=== PATIENT | female | born 1995 | race Caucasian/White ===

== ENCOUNTER 2017-08-17 12:35 | Inpatient (IN) ==
[2017-08-17 13:20] LABS: Basophils % 0.3 %; Eosinophils # 0.2 K/mcL (0.0-0.6); Eosinophils % 1.2 %; Hematocrit 31.7 % (35.3-44.9); Hemoglobin 10.9 g/dL (11.5-15.4); Immature Granulocytes % 0.5 % (0-4); Lymphocytes # 1.4 K/mcL (0.6-4.6); Lymphocytes % 8.9 %; Mean Corpuscular HGB Conc 34.4 g/dL (31.6-35.5); Mean Corpuscular Hemoglobin 30.9 pg (28.0-33.3); Mean Corpuscular Volume 89.8 fL (83.0-100.0); Mean Platelet Volume 10.7 fL (9.4-12.4); Monocytes # 1.1 K/mcL (0.0-1.3); Monocytes % 7.1 %; Neutrophils # 12.4 K/mcL (1.6-8.9); Platelet Count 374 K/mcL (140-400); Red Blood Count 3.53 M/mcL (3.82-4.97); Red Cell Distribution Width 13.8 % (11.5-14.5)
[2017-08-17 13:29] LABS: Amphetamine Screen,Urine Negative ng/mL (Cutoff=1000); Barbiturate Screen,Urine Negative ng/mL (Cutoff=200); Benzodiazepines Screen,Urine Negative ng/mL (Cutoff=200); Cannabinoid Screen,Urine Negative ng/mL (Cutoff = 50); Cocaine Screen,Urine Negative ng/mL (Cutoff= 300); Opiate Screen,Urine Negative ng/mL (Cutoff=300); Phencyclidine Screen,Urine Negative ng/mL (Cutoff=25)
[2017-08-17 13:51] LABS: Alanine Aminotransferase 8 Units/L (7-52); Aspartate Amino Transferase 12 Units/L (13-39); BUN/Creatinine Ratio 22 (6-26); Blood Urea Nitrogen 9 mg/dL (6-20); Lactate Dehydrogenase 144 Units/L (140-271); Uric Acid 4.6 mg/dL (2.3-7.6); eGFR For African Americans > 60 (> 60); eGFR For Non-African Americans > 60 (> 60)
[2017-08-17 14:30] LABS: Protein/Creatinine Ratio,Urine 0.45 mg/mg (0.00-0.20)
--- NOTE | 2017-08-17 15:58 | OB/GYN History & Physical ---
Date of Encounter: 08/17/17 Time of Encounter: 15:56 Assessment and Plan (1) 40 weeks gestation of Current visit: Yes Status: Acute admitted for labor (2) NST (non-stress test) reactive on surveillance Current visit: Yes Status: Acute baseline 135 bpm moderate variability +15x15 accels no decels noted. History of Present Illness Chief complaint: Labor HPI: Ms. Rivera is a 22 year old female at 40w0d presents to labor and delivery with complaints of contractions that are stronger. Patient reports she went to [place] yesterday and was 3 cm and was sent home. Patient sees Dr. Olivera for care. Patient denies LOF or VB. Patient reports +FM. On admission for observation some elevated BPs were noted. PIH labs collected and WNL. Patient denied PLATA, visual disturbances or epigastric pain. Blood type: A+ Rubella: Immune Hep B: Nonreactive GBS: Negative Past Med Surg Social Fam HX - Past Medical History Source: patient Medical history: no medical history Psychiatric history: anxiety - Past Surgical History Surgical History: other (tonsilectomy) - Social History Smoking Status: Current every day smoker Smokeless Tobacco Status: No Alcohol use: none Drug use: marijuana Current living situation: Home - Independent Activity Level: Independent ambulation Recent Out of Country Travel Within the Last 8 Weeks: No Exposure or Possible Exposure to Illness During Travel: No Obstetrical History - Pregnancies : 1 Para: 0 Term: 0 : 0 Ab's: 0 Livin Medications and Allergies Acetaminophen [Tylenol] 500 mg PO Q6HR PRN #20 tablet 03/22/17 [Rx] Benadryl 03/22/17 [History] Cephalexin [Keflex] 500 mg PO TID #21 capsule 03/22/17 [Rx] DiphenhydraMINE [Benadryl] 25 mg PO Q6HR PRN #20 capsule 03/22/17 [Rx] Humidifier [Cool Mist Humidifier] 1 each MC BID #1 each 03/22/17 [Rx] Tylenol 03/22/17 [History] 3 Allergy/AdvReac Type Severity Reaction Status Date / Time No Known Allergies Allergy Verified 03/22/17 12:58 Review of System OB - Constitutional Constitutional ROS IM: no chills, no fever(s), no headache(s) - Cardiovascular Cardiovascular: no chest pain, no lightheadedness, no palpitations, no pedal edema, no rapid heart rate, no syncope - Respiratory Respiratory: no cough - Gastrointestinal Gastrointestinal: cramping, no constipation, no diarrhea, no heartburn, no nausea, no vomiting - Genitourinary Genitourinary: no abnormal vaginal bleeding, no dysuria, no flank pain, no urinary frequency, no urinary urgency Exam - Vital Signs Vital signs: Initial Vital Signs Temp Pulse Resp BP 97.9 F 80 18 146/101 08/17/17 12:59 08/17/17 12:59 08/17/17 12:59 08/17/17 12:59 - Constitutional Constitutional: well developed, well nourished, no acute distress, average body habitus - HEENT HEENT: Normocephaly, Mucus Membranes Moist - Neck Neck exam: full ROM, supple - Lungs Respiratory exam: CTAB - Cardiovascular Cardiovascular exam: RRR, +S1, +S2 - Abdomen Abdomen: Present: bowel sounds normal, gravid, non tender - Extremities Extremities exam: full ROM, normal inspection Deep Tendon Reflex Grade: 2+ Normal - Cervix Dilation: 5 Effacement: 100 Station: -1 - Uterus Uterus exam: Present: normal size, normal contour - Anus/Rectum Anus/Rectum: Present: normal perianal skin - Comments Comments: FHR 135 bpm moderate variability +15x15 accels no decels noted. Contractions 2- 3 min apart Results Result Diagrams: 08/17/17 13:10 08/17/17 13:10 Abnormal lab results WBC 15.1 K/mcL (4.3-11.1) H 08/17/17 13:10 RBC 3.53 M/mcL (3.82-4.97) L 08/17/17 13:10 Hgb 10.9 g/dL (11.5-15.4) L 08/17/17 13:10 Hct 31.7 % (35.3-44.9) L 08/17/17 13:10 Neutrophils # 12.4 K/mcL (1.6-8.9) H 08/17/17 13:10 Creatinine 0.41 mg/dL (0.60-1.20) L 08/17/17 13:10 AST 12 Units/L (13-39) L 08/17/17 13:10 Protein/Creatinin Ratio 0.45 mg/mg (0.00-0.20) H 08/17/17 13:10 All other labs normal. - VTE Reasons for not Prescribing Prophylaxis: Treatment not Indicated - Low risk for VTE
[2017-08-17] MEDS ORDERED: Ringers Solution, Lactated 1,000 ML ONE (16:00)
[2017-08-17] MEDS ORDERED: Ondansetron 4 MG/2 ML VIAL IVP PRN (16:02)
[2017-08-17] MEDS ORDERED: Naloxone 0.4 MG/ML INJ IVP PRN (16:02)
[2017-08-17] MEDS ORDERED: Famotidine 20 MG/2 ML VIAL IVP PRN (16:02)
[2017-08-17] MEDS ORDERED: *HR* Nalbuphine 20 MG/ML AMPUL IVP PRN (16:02)
[2017-08-17] MEDS ORDERED: Ringers Solution, Lactated 1,000 ML IVC SCH (16:15)
--- NOTE | 2017-08-17 16:41 | Anesthesia Evaluation PreOp ---
Date of Encounter: 08/17/17 Time of Encounter: 16:39 - Past History Planned Operation: edmund Cardiac History: Denies any Significant Hx Pulmonary History: Smoker (6/ day), Pack/yr (5) SINGER AND UNLOADER History: Denies Any Significant HX Other Medical History: GERD Anesthesia History: No Prior Anesthetic Complications, Past Anesthesia (tonsil) : Yes Test: Positive Alcohol Use: none Drug use: marijuana Medications and Allergies Acetaminophen [Tylenol] 500 mg PO Q6HR PRN #20 tablet 03/22/17 [Rx] Benadryl 03/22/17 [History] Cephalexin [Keflex] 500 mg PO TID #21 capsule 03/22/17 [Rx] DiphenhydraMINE [Benadryl] 25 mg PO Q6HR PRN #20 capsule 03/22/17 [Rx] Humidifier [Cool Mist Humidifier] 1 each MC BID #1 each 03/22/17 [Rx] Tylenol 03/22/17 [History] 3 Allergy/AdvReac Type Severity Reaction Status Date / Time No Known Allergies Allergy Verified 03/22/17 12:58 - Meds/Allergy Pre-op Review Medications Reviewed: Yes Allergies Reviewed: Yes Beta Blockers on Current Med List: No Anesthesia Results - Labs 08/17/17 13:10 08/17/17 13:10 Anesthesia Exam Vital Signs/O2 Sat, Most Current Temp Pulse Resp BP 97.9 F 80 18 146/101 08/17/17 12:59 08/17/17 12:59 08/17/17 12:59 08/17/17 12:59 Height: 5'2" Weight: 130 NPO (# of Hours): 8 Pain Scale: 6 Pain Scale Used: Numeric (1 - 10) - HEENT Pupil (Motor): Pupils equal Mallampati: II Teeth: Normal Oral Opening: Greater than 3 - SINGER AND UNLOADER SINGER AND UNLOADER Motor: Normal RUE, Normal LUE, Normal RLE, Normal LLE, Normal Face SINGER AND UNLOADER Sensory: Normal: RUE, LUE, RLE, LLE, Face - Cardiac Rhythm: Regular Murmur: None - Pulmonary Breath Sounds: bilateral Clear Respiratory Effort: Symmetrical Anesthesia Assess/Plan ASA Score: 2 Modified Troy Scale for Level of Consciousness: Cooperative, oriented, and tranquil Anesthetic Plan: Regional Autologous Blood: No Monitoring Plan: Standard Monitors Recovery Plan: Other (risks discussed, questions answered, consented)
[2017-08-17] MEDS ORDERED: *HR* Ropivacaine/PF 0.2% 10 ML AMPUL EP ONE (16:42)
[2017-08-17] MEDS ORDERED: *HR* FentaNYL (PF) 100 MCG/2 ML VIAL EP ONE (16:42)
[2017-08-17] MEDS ORDERED: Epidural Premix (fent/bupiv) 110 ML EP SCH (16:45)
[2017-08-17] MEDS ORDERED: *HR* Ropivacaine/PF 0.2% 20 ML VIAL ONE (16:46)
[2017-08-17] MEDS ORDERED: *HR* FentaNYL (PF) 100 MCG/2 ML VIAL ONE (16:46)
[2017-08-17] MEDS ORDERED: Epidural Premix (fent/bupiv) 110 ML EP ONE ×2 (16:46→23:19)
--- NOTE | 2017-08-17 19:02 | Anesthesia Procedures ---
Date of Encounter: 08/17/17 Time of Encounter: 17:05 Procedures: Anesthesia - Epidural/Spinal Patient ID/Chart reviewed: Yes Patient examined: Yes OB Eval: Gestational age: 40 OB Eval: : 1 OB Eval: Hx Para: 0 OB Eval: Dilated at (cm): 3 OB Eval: Contractions: Non-stressed pattern Consent Obtained: Yes Supplemental Oxygen: None/Room Air Site Prep: Aseptic Technique, Sterile prep and drape, 0.5% Chlorhexidine/Alcohol Patient position: upright Local Anesthetic: Lidocaine 1% Amount of Local Anesthetic used: 3 Touhy Needle Depth (cm): 6 Catheter Depth at Skin (cm): 15 Test Dose (1.5% Lido + Epi): Volume given (mls): 3 Test Dose Result: Negative Loading Dose: Fentanyl (mcg): 100 Loading Dose: Other: rop 0.2% 10cc Loading Dose Administered: Thru Touhy Needle Infusion Med: 0.125% Bupivacaine w/ 2 mcg/ml Fentanyl Infusion Rate (mls/hr): 15 (pcea 5cc q30") Catheter Secured in Place: Tegaderm Interspace Used: L2-L3 Loss of Resistance (CAROLYNE): Yes Blood: No CSF: No Paresthesia: No Procedure: aseptic, nickolas well, effective Vitals + FHT's: 140/90 96 16 fht 133
--- NOTE | 2017-08-17 19:26 | OB Labor Progress Note ---
Date of Encounter: 08/17/17 Time of Encounter: 19:23 Labor Progress Note - Subjective Subjective: Patient resting comfortably in bed after epidural placement. Patient was able to get a nap. - Cervix Cervix: 1/100/-1 - Heart Tones Heart Tones: 130 bpm, moderate variability, +15x15 accels, no decels. - Forada Forada: Irregular - Interventions Interventions: SVE AROM for moderate amount clear fluid. - Plan Plan: Continue labor management Augment with Pitocin if necessary.
--- NOTE | 2017-08-17 20:04 | OB Labor Progress Note ---
Date of Encounter: 08/17/17 Time of Encounter: 20:01 Labor Progress Note - Subjective Subjective: Patient resting with epidural, deceleration noted. Patient repositioned. - Cervix Cervix: 8/100/0 - Heart Tones Heart Tones: 135 bpm moderate variability +15x15 accels prolonged decel noted. - [place]: 1.5-3 min apart - Interventions Interventions: SVE, repositioned - Plan Plan: Continue labor management anticipate
[2017-08-17] MEDS ORDERED: Oxytocin 20 units/ LR 1000 mL 20 UNIT/1,000 ML BAG IVC ONE (20:19)
--- NOTE | 2017-08-18 02:43 | OB/GYN Procedure Note ---
Delivery - Delivery Date: 08/18/17 Provider: Isabel Iraheta (Suhail Douglas [facility]) Intrapartum events: none Delivery induction: none Delivery augmentation: rupture of membranes Delivery monitor: external FHT, external uterine Anesthesia: epidural Estimated Blood Loss: 200 - (s) A Delivery Date: 08/18/17 Delivery Time: 01:34 Presentation: vertex Position: SHARON Route of delivery: Gender: Female Viability: Viable Pounds: 8 Ounces: 4 Weight Gram: 3.73 kg at 1 minute: 8 at 5 mins: 9 Shoulder Dystocia: not encountered Placenta: spontaneous Cord: 3 umbilical vessels - Repair Episiotomy: none Laceration Description: Labial - Complications Delivery complications: none Delivery comments: Under maternal effort, spontaneous vaginal delivery of viable 8#4oz female over intact perineum. Cord clamped and cut after pulsation ceased. Bilateral labial lacerations noted and both repaired with 3-0 Vicryl. Spontaneous delivery of intact placenta. EBL 200 mL. No meconium, nuchal cord, or shoulder dystocia encountered. All counts correct. Mother and stable in kangaroo care for 2 hour recovery. - Disposition Mom disposition: stable in LDR disposition: stable in LDR
[2017-08-18] MEDS ORDERED: Measles/Mumps/Rubella Vacc 0.5 ML VIAL SQ PRN (02:55)
[2017-08-18] MEDS ORDERED: Acetaminophen 325 MG TABLET PO PRN (02:55)
[2017-08-18] MEDS ORDERED: *HR* HYDROcodone/Acet 5/325 mg TABLET PO PRN (02:55)
[2017-08-18] MEDS ORDERED: Oxytocin 20 units/ LR 1000 mL 20 UNIT/1,000 ML BAG IVC SCH (02:55)
[2017-08-18] MEDS: Ibuprofen 600 MG TABLET PO PRN ×2 (05:45→21:16)
[2017-08-18] MEDS: Prenatal Vit/FA 1 EACH TABLET PO SCH (10:52)
[2017-08-19 09:01] VITALS: BP 125/80
[2017-08-19] MEDS: Ibuprofen 600 MG TABLET PO PRN (09:59)
--- NOTE | 2017-08-19 10:49 | Discharge Summary ---
Date of Encounter: 08/19/17 Time of Encounter: 11:10 - Discharge Diagnosis (1) (spontaneous vaginal delivery) Priority: Secondary Status: Acute (2) 40 weeks gestation of Priority: Primary Status: Acute (3) Antepartum anemia Priority: Secondary Status: Acute - Discharge Medications Prescriptions: Acetaminophen [Tylenol] 650 mg PO Q6HR PRN #40 tablet PRN Reason: Mild Pain Ibuprofen [Motrin] 600 mg PO Q6HR PRN #40 tablet PRN Reason: Cramping Docusate [Colace] 100 mg PO BID #10 capsule Home Medications: Benadryl 03/22/17 [History] DiphenhydraMINE [Benadryl] 25 mg PO Q6HR PRN #20 capsule 03/22/17 [Rx] Humidifier [Cool Mist Humidifier] 1 each MC BID #1 each 03/22/17 [Rx] Acetaminophen [Tylenol] 650 mg PO Q6HR PRN #40 tablet 08/19/17 [Rx] Breast Pump [BREAST PUMP] 1 each .ROUTE AD #1 each 08/19/17 [Rx] Docusate [Colace] 100 mg PO BID #10 capsule 08/19/17 [Rx] Ibuprofen [Motrin] 600 mg PO Q6HR PRN #40 tablet 08/19/17 [Rx] Allergies/Adverse Reactions: 3 Allergy/AdvReac Type Severity Reaction Status Date / Time No Known Allergies Allergy Verified 03/22/17 12:58 Data Procedures and tests throughout hospitalization: Laboratory Tests 08/17/17 08/17/17 08/17/17 13:10 13:10 13:10 WBC 15.1 H RBC 3.53 L Hgb 10.9 L Hct 31.7 L MCV 89.8 MCH 30.9 MCHC 34.4 RDW 13.8 Plt Count 374 MPV 10.7 Immature Gran % 0.5 Seg Neutrophils % 82.0 Lymphocytes % 8.9 Monocytes % 7.1 Eosinophils % 1.2 Basophils % 0.3 Neutrophils # 12.4 H Lymphocytes # 1.4 Monocytes # 1.1 Eosinophils # 0.2 Basophils # 0.0 BUN Creatinine Est GFR ( Amer) Est GFR (Non-Af Amer) BUN/Creatinine Ratio Uric Acid AST ALT Lactate Dehydrogenase Urine Creatinine 92 Protein/Creatinin Ratio 0.45 H Urine Total Protein 41 Urine Opiates Screen Negative Ur Barbiturates Screen Negative Ur Phencyclidine Scrn Negative Ur Amphetamines Screen Negative U Benzodiazepines Scrn Negative Urine Cocaine Screen Negative U Marijuana (THC) Screen Negative 08/17/17 13:10 WBC RBC Hgb Hct MCV MCH MCHC RDW Plt Count MPV Immature Gran % Seg Neutrophils % Lymphocytes % Monocytes % Eosinophils % Basophils % Neutrophils # Lymphocytes # Monocytes # Eosinophils # Basophils # BUN 9 Creatinine 0.41 L Est GFR ( Amer) > 60 Est GFR (Non-Af Amer) > 60 BUN/Creatinine Ratio 22 Uric Acid 4.6 AST 12 L ALT 8 Lactate Dehydrogenase 144 Urine Creatinine Protein/Creatinin Ratio Urine Total Protein Urine Opiates Screen Ur Barbiturates Screen Ur Phencyclidine Scrn Ur Amphetamines Screen U Benzodiazepines Scrn Urine Cocaine Screen U Marijuana (THC) Screen Date of admission: 08/17/17 12:35 Primary care physician: PCP PAUL Consults: 08/18/17 02:55 Consult to Salad Counter Attendant [CONS] Routine Reason for SW Consult: cord stat, care at [facility] Discharging clinician: Laney Rivera Anticipated date of discharge: 08/19/17 - Patient Status Disposition: Home, Self-Care Condition: Good Functional capacity at discharge: independent ambulation Overall status at discharge: patient is progressing back to baseline - Discharge Instructions Follow Up With: NONE,PCP [Primary Care Provider] - - Diet and Activity Activity: increase activity as tolerated Diet: advance to your usual diet Hospital Course Reason for admission: active labor Episiotomy: none Laceration: other (bilateral labial closed with suture) Other procedures: none complications: none Discharge diagnosis: IUP at term delivered baby: female Hospital course: Delivery Date: 08/18/17 Provider: Isabel Iraheta ([facility]) Intrapartum events: none Delivery induction: none Delivery augmentation: rupture of membranes Delivery monitor: external FHT, external uterine Anesthesia: epidural Estimated Blood Loss: 200 - (s) A Delivery Date: 08/18/17 Infant Delivery Time: 01:34 Presentation: vertex Position: SHARON Route of delivery: Gender: Female Viability: Viable Pounds: 8 Ounces: 4 Weight Gram: 3.73 kg at 1 minute: 8 at 5 mins: 9 Shoulder Dystocia: not encountered Placenta: spontaneous Cord: 3 umbilical vessels - Repair Episiotomy: none Laceration Description: Labial - Complications Delivery complications: none Delivery comments: Under maternal effort, spontaneous vaginal delivery of viable 8#4oz female over intact perineum. Cord clamped and cut after pulsation ceased. Bilateral labial lacerations noted and both repaired with 3-0 Vicryl. Spontaneous delivery of intact placenta. EBL 200 mL. No meconium, nuchal cord, or shoulder dystocia encountered. All counts correct. Mother and stable in kangaroo care for 2 hour recovery. - Disposition Mom disposition: stable in Patient is doing well with pain well controlled on PO medications. Voiding and eating well. Mild Lochia. No complications after delivery. Follow-up in 4 weeks with Dinorah BLAS. Time Attestation: Total time spent providing and/or coordinating discharge services: Exam - Constitutional Vitals: Temp Pulse Resp BP Pulse Ox 98.1 F 82 16 125/80 97 08/19/17 08:00 08/19/17 08:00 08/19/17 08:00 08/19/17 08:00 08/19/17 08:00 General appearance IM: pleasant, no acute distress - Respiratory Respiratory exam: Present: CTAB - Cardiovascular Cardiovascular exam IM: Present: RRR - GI/Abdominal GI/Abdominal exam IM: normal bowel sounds - Uterine Tone: Firm Uterus Position: 2 Fingers Below Umbilicus, 3 Fingers Below Umbilicus - Extremities Exam Extremities exam IM: Present: full ROM, normal inspection - Neurological Exam Neurological exam: altered, no focal deficits
[2017-08-19] MEDS: Prenatal Vit/FA 1 EACH TABLET PO SCH (10:58)
== END 2017-08-19 13:15 | disposition home or self-care (01) | DRG 560 ==
LOC: 1NENULAB → OBSVTOIN 12:35 → 1NENUOBS 08-18 03:38
PROVIDERS: ADMIT Obstetrics & Gynecology; ATTEND Obstetrics & Gynecology

== ENCOUNTER 2020-06-05 19:00 | Inpatient (IN) ==
[~2020-06-05 19:00] MED LIST: *HR* FentaNYL (PF) 100 MCG/2 ML VIAL IVP PRN; Azithromycin 250 MG TABLET PO ONE; Famotidine 20 MG/2 ML VIAL IVP PRN; Lidocaine 1% 20 ML MDV INFILT PRN; Metoclopramide 10 MG/2 ML VIAL IVP PRN; Naloxone 0.4 MG/ML INJ IVP PRN; Ondansetron 4 MG/2 ML VIAL IVP PRN
[2020-06-05 19:01] LABS: Amorphous Sediment,Urine Few per hpf (None-Few); Bacteria,Urine Few per hpf (None-Few); Bilirubin,Urine Negative (Negative); Blood,Urine Negative (Negative); Clarity,Urine Turbid (Clear); Color,Urine Light-Yellow (Yellow); Glucose,Urine (UA) Normal (Normal); Ketones,Urine Negative (Negative); Leukocyte Esterase,Urine Negative (Negative); Mucus,Urine Few per lpf (None-Few); Nitrite,Urine Negative (Negative); Protein,Urine Trace mg/dL (Neg-Trace); RBC,Urine 0-3 per hpf (0-3); Specific Gravity,Urine 1.014 (1.010-1.025); Squamous Epithelial Cell,Urine Few per hpf (None-Few); Urobilinogen,Urine Normal (Normal); WBC,Urine 0-3 per hpf (0-3)
[2020-06-05] MEDS: Ringers Solution, Lactated 1,000 ML IVC SCH (19:45)
[2020-06-05] MEDS: Betamethasone Acet/SodPhos 30 MG/5 ML VIAL IM SCH (19:45)
[2020-06-05] MEDS: Ampicillin 2 GM in 0.9 % Sodium Chloride Mini Bag 100 ML IVPB SCH (19:47)
[2020-06-05 19:53] LABS: Candida DNA Not Detected (Not Detect); Gardnerella DNA Not Detected (Not Detect); Trichomonas DNA Not Detected (Not Detect)
[2020-06-05 19:54] LABS: Basophils % 0.2 %; Eosinophils # 0.1 K/mcL (0.0-0.6); Eosinophils % 0.8 %; Hematocrit 30.2 % (35.3-44.9); Hemoglobin 10.2 g/dL (11.5-15.4); Immature Granulocytes % 0.4 % (0-4); Lymphocytes # 1.8 K/mcL (0.6-4.6); Lymphocytes % 14.9 %; Mean Corpuscular HGB Conc 33.8 g/dL (31.6-35.5); Mean Corpuscular Hemoglobin 30.8 pg (28.0-33.3); Mean Corpuscular Volume 91.2 fL (83.0-100.0); Mean Platelet Volume 10.1 fL (9.4-12.4); Monocytes # 0.9 K/mcL (0.0-1.3); Monocytes % 7.2 %; Neutrophils # 9.4 K/mcL (1.6-8.9); Platelet Count 412 K/mcL (140-400); Red Blood Count 3.31 M/mcL (3.82-4.97); Red Cell Distribution Width 13.2 % (11.5-14.5); Segmented Neutrophils % 76.5 %; White Blood Count 12.3 K/mcL (4.3-11.1)
[2020-06-05 20:01] LABS: Amphetamine Screen,Urine Negative ng/mL (Cutoff=1000); Barbiturate Screen,Urine Negative ng/mL (Cutoff=200); Benzodiazepines Screen,Urine Negative ng/mL (Cutoff=200); Cannabinoid Screen,Urine Negative ng/mL (Cutoff = 50); Cocaine Screen,Urine Negative ng/mL (Cutoff= 300); Opiate Screen,Urine Negative ng/mL (Cutoff=300); Phencyclidine Screen,Urine Negative ng/mL (Cutoff=25)
[2020-06-06] MEDS: Ampicillin 2 GM in 0.9 % Sodium Chloride Mini Bag 100 ML IVPB SCH ×4 (02:08→20:51)
[2020-06-06] MEDS ORDERED: EPHEDrine 50 MG/ML VIAL IVP PRN (08:48)
[2020-06-06] MEDS ORDERED: Epidural Premix (fent/bupiv) 110 ML EP SCH (09:00)
[2020-06-06 09:47] LABS: Adenovirus Not Detected (Not Detect); Coronavirus 229E Not Detected (Not Detect); Coronavirus HKU1 Not Detected (Not Detect); Coronavirus NL63 Not Detected (Not Detect); Coronavirus OC43 Not Detected (Not Detect)
[2020-06-06 09:48] LABS: Bordetella Pertussis Not Detected (Not Detect); Chlamydophila pneumoniae Not Detected (Not Detect); Human Metapneumovirus Not Detected (Not Detect); Human Rhinovirus/Enterovirus Not Detected (Not Detect); Influenza A Subtype 2009 H1 Not Detected (Not Detect); Influenza B Not Detected (Not Detect); Mycoplasma pneumoniae Not Detected (Not Detect); Parainfluenza Virus 1 Not Detected (Not Detect); Parainfluenza Virus 2 Not Detected (Not Detect); Parainfluenza Virus 3 Not Detected (Not Detect); Parainfluenza Virus 4 Not Detected (Not Detect); Respiratory Syncytial Virus Not Detected (Not Detect); SARS-CoV-2 Not Detected (Not Detect)
[2020-06-06] MEDS: Ringers Solution, Lactated 1,000 ML IVC SCH (12:46)
[2020-06-06] MEDS: Betamethasone Acet/SodPhos 30 MG/5 ML VIAL IM SCH (19:54)
[2020-06-06] MEDS ORDERED: miSOPROStoL 25 MCG TABLET PO STA (20:21)
[2020-06-07] MEDS ORDERED: Oxytocin 20 units/ LR 1000 mL 20 UNIT/1,000 ML BAG IVC SCH ×2 (01:15→09:34)
[2020-06-07] MEDS: Ampicillin 2 GM in 0.9 % Sodium Chloride Mini Bag 100 ML IVPB SCH (02:19)
[2020-06-07] MEDS ORDERED: Benzocaine/Menthol 56 GM AEROSOL SPRAY TP PRN (09:34)
[2020-06-07] MEDS ORDERED: Acetaminophen 325 MG TABLET PO PRN (09:34)
[2020-06-07] MEDS ORDERED: Lanolin 7 G OINT...G. TP PRN (09:34)
[2020-06-07] MEDS ORDERED: Ibuprofen 600 MG TABLET PO PRN (09:34)
[2020-06-07] MEDS: Prenatal Vit/FA 1 EACH TABLET PO SCH (10:07)
[2020-06-08] MEDS: Prenatal Vit/FA 1 EACH TABLET PO SCH (07:40)
[2020-06-08 08:30] VITALS: BP 121/79
== END 2020-06-08 13:00 | disposition home or self-care (01) | DRG 560 ==
LOC: 1NENULAB → 1NENUOBS 06-07 08:58
PROVIDERS: ADMIT Obstetrics & Gynecology; ATTEND Obstetrics & Gynecology

== ENCOUNTER 2021-07-16 16:32 | Observation (INO) ==
[2021-07-16 18:50] LABS: Basophils % 0.1 %; Eosinophils % 0.1 %; Hematocrit 41.6 % (35.3-44.9); Hemoglobin 14.4 g/dL (11.5-15.4); Immature Granulocytes % 0.3 % (0-4); Lymphocytes # 0.9 K/mcL (0.6-4.6); Lymphocytes % 6.5 %; Mean Corpuscular HGB Conc 34.6 g/dL (31.6-35.5); Mean Corpuscular Volume 86.7 fL (83.0-100.0); Mean Platelet Volume 10.5 fL (9.4-12.4); Monocytes # 0.3 K/mcL (0.0-1.3); Monocytes % 2.2 %; Platelet Count 350 K/mcL (140-400); Red Cell Distribution Width 12.5 % (11.5-14.5); Segmented Neutrophils % 90.8 %; White Blood Count 14.3 K/mcL (4.3-11.1)
[2021-07-16 19:10] LABS: Bilirubin,Urine Negative (Negative); Blood,Urine Large (Negative); Clarity,Urine Turbid (Clear); Color,Urine Yellow (Yellow); Glucose,Urine (UA) Normal (Normal); Ketones,Urine >150 mg/dL (Negative); Leukocyte Esterase,Urine Negative (Negative); Mucus,Urine Many per lpf (None-Few); Nitrite,Urine Negative (Negative); PH,Urine 5.5 pH Units (5.0-8.0); Protein,Urine 70 mg/dL (Neg-Trace); RBC,Urine TNTC per hpf (0-3); Specific Gravity,Urine 1.028 (1.010-1.025); Squamous Epithelial Cell,Urine Moderate per hpf (None-Few); Urobilinogen,Urine Normal (Normal)
[2021-07-16 19:16] LABS: BUN/Creatinine Ratio 43 (6-26); Blood Urea Nitrogen 20 mg/dL (6-20); Calcium 9.6 mg/dL (8.6-10.3); Carbon Dioxide 26 mEq/L (23-29); Chloride 104 mEq/L (98-107); Glucose 102 mg/dL (70-105); Osmolality,Calculated 289 (280-300); Potassium 3.2 mEq/L (3.5-5.1); Sodium 138 mEq/L (136-145); eGFR For African Americans > 60 (> 60); eGFR For Non-African Americans > 60 (> 60)
[2021-07-16] MEDS ORDERED: Isovue-370 500 ML BOTTLE IVP ONE (20:26)
[2021-07-16] MEDS ORDERED: Ondansetron 4 MG/2 ML VIAL IVP ONE (20:37)
[2021-07-16] MEDS ORDERED: Ketorolac 30 MG/ML VIAL IVP ONE (20:37)
[2021-07-16] MEDS ORDERED: 0.9 % Sodium Chloride 1,000 ML IVC ONE (20:37)
[2021-07-16 20:55] LABS: Alanine Aminotransferase 11 Units/L (7-52); Alkaline Phosphatase 51 Units/L (34-104); Aspartate Amino Transferase 14 Units/L (13-39); Bilirubin,Direct 0.1 mg/dL (0.0-0.2); Bilirubin,Indirect 0.3 mg/dL (0.0-1.0); Bilirubin,Total 0.4 mg/dL (0.3-1.0); Globulin 2.5 g/dL (2.4-3.5); Lipase 13 Units/L (11-82); Total Protein 7.5 g/dL (6.4-8.9)
[2021-07-16] MEDS ORDERED: Potassium Chloride Elixir 20 MEQ/15 ML UDC PO ONE (22:41)
[2021-07-16] MEDS ORDERED: *HR* OxyCODONE Immed Rel 5 MG TABLET PO PRN (23:04)
[2021-07-16] MEDS ORDERED: Acetaminophen 325 MG TABLET PO PRN (23:04)
[2021-07-16] MEDS ORDERED: *HR* HYDROcodone/Acet 5/325 mg TABLET PO PRN (23:04)
[2021-07-16] MEDS ORDERED: Melatonin 3 MG TABLET PO PRN (23:04)
[2021-07-16] MEDS ORDERED: Ondansetron ODT 4 MG TAB.RAPDIS SL PRN (23:04)
[2021-07-16] MEDS ORDERED: Naloxone 0.4 MG/ML INJ IVP PRN (23:04)
[2021-07-16 23:09] LABS: Influenza A PCR Negative (Negative); Influenza B PCR Negative (Negative); Resp. Syncytial Virus PCR Negative (Negative)
[2021-07-16 23:11] LABS: SARS-CoV-2 by PCR (In House) Negative (Negative)
[2021-07-17] MEDS ORDERED: cefTRIAXone 1,000 MG in 0.9 % Sodium Chloride Mini Bag 100 ML IVPB ONE (05:08)
[2021-07-17 06:21] LABS: Basophils % 0.3 %; Eosinophils # 0.1 K/mcL (0.0-0.6); Eosinophils % 1.2 %; Hematocrit 34.9 % (35.3-44.9); Immature Granulocytes % 0.1 % (0-4); Lymphocytes % 27.2 %; Mean Corpuscular Hemoglobin 30.5 pg (28.0-33.3); Mean Corpuscular Volume 87.3 fL (83.0-100.0); Mean Platelet Volume 10.4 fL (9.4-12.4); Monocytes # 0.8 K/mcL (0.0-1.3); Monocytes % 10.3 %; Neutrophils # 4.5 K/mcL (1.6-8.9); Platelet Count 295 K/mcL (140-400); Red Cell Distribution Width 12.5 % (11.5-14.5); Segmented Neutrophils % 60.9 %; White Blood Count 7.4 K/mcL (4.3-11.1)
[2021-07-17 06:26] LABS: Hemoglobin 12.2 g/dL (11.5-15.4)
[2021-07-17 06:35] LABS: Activated Partial Thrombo Time 29.4 Seconds (26.0-36.0); INR 1.1; Prothrombin Time 11.8 Seconds (9.4-12.1)
[2021-07-17 06:45] LABS: BUN/Creatinine Ratio 35 (6-26); Blood Urea Nitrogen 19 mg/dL (6-20); Calcium 8.7 mg/dL (8.6-10.3); Carbon Dioxide 26 mEq/L (23-29); Chloride 111 mEq/L (98-107); Glucose 92 mg/dL (70-105); Osmolality,Calculated 290 (280-300); Potassium 3.4 mEq/L (3.5-5.1); Sodium 139 mEq/L (136-145); eGFR For African Americans > 60 (> 60); eGFR For Non-African Americans > 60 (> 60)
[2021-07-17] MEDS ORDERED: Lidocaine -MPF 2% 5 ML VIAL ONE (08:24)
[2021-07-17] MEDS ORDERED: Ondansetron 4 MG/2 ML VIAL ONE (08:24)
[2021-07-17] MEDS ORDERED: *HR* FentaNYL (PF) 100 MCG/2 ML VIAL ONE (08:25)
[2021-07-17] MEDS ORDERED: *HR* Midazolam HCl 2 MG/2 ML VIAL ONE (08:25)
[2021-07-17] MEDS ORDERED: *HR* Propofol 200 MG/20 ML VIAL IVP ONE (08:25)
[2021-07-17] MEDS ORDERED: Nitroglycerin 0.4 MG TAB.SUBL SL PRN (08:51)
[2021-07-17] MEDS ORDERED: *HR* FentaNYL (PF) 100 MCG/2 ML VIAL IVP PRN (08:51)
[2021-07-17] MEDS ORDERED: Ondansetron 4 MG/2 ML VIAL IVP PRN (08:51)
[2021-07-17] MEDS ORDERED: Naloxone 0.4 MG/ML INJ IVP PRN ×2 (08:51→10:15)
[2021-07-17] MEDS ORDERED: Albuterol 2.5 MG/3 ML NEBULIZER IH PRN (08:51)
[2021-07-17] MEDS ORDERED: Acetaminophen IV 1,000 MG/100 ML BAG IVPB ONE (08:52)
[2021-07-17] MEDS ORDERED: *HR* OxyCODONE Immed Rel 5 MG TABLET PO PRN (10:15)
[2021-07-17] MEDS ORDERED: Ondansetron ODT 4 MG TAB.RAPDIS SL PRN (10:15)
[2021-07-17] MEDS ORDERED: Melatonin 3 MG TABLET PO PRN (10:15)
[2021-07-17 12:15] VITALS: TEMP 97.9; O2SAT 98
[2021-07-17 15:22] VITALS: BP 105/62; PULSE 58
== END 2021-07-17 15:36 | disposition home or self-care (01) ==
LOC: SUATTDRO → 3ANU 16:32 → EMEROOARM 16:32 → SUATTDRO 23:17 → 3ANU 07-17
PROVIDERS: ADMIT Internal Medicine; ATTEND Internal Medicine